=== PATIENT | male | born 1990 | race Hispanic/Latino ===

== ENCOUNTER 2017-01-30 07:14 | Day surgery (SDC) | payer MEDICARE, OTHER ==
[2017-01-23 08:37] VITALS: BMI 28.2
[2017-01-30] MEDS ORDERED: Lidocaine 2% w Epi 1:100,000 Inj IJ ONE (07:17)
[2017-01-30] MEDS ORDERED: Acetaminophen-Codeine 300/30 mg Tab PO PRN (08:31)
[2017-01-30] MEDS ORDERED: Dextrose 5%/0.45% NS 1,000 ML IV SCH (08:45)
[2017-01-30] MEDS ORDERED: Propofol 10 mg/ml Inj (20 ML) ONE (08:58)
[2017-01-30] MEDS ORDERED: Lactated Ringer's 1,000 ML IV ONE (09:00)
[2017-01-30] MEDS ORDERED: Midazolam 2 MG/2 ML VIAL ONE (09:00)
--- NOTE | 2017-01-30 14:53 | OP ---
PROCEDURE DATE: 01/30/2017 PREOPERATIVE DIAGNOSIS: Right Auricular cyst. POSTOPERATIVE DIAGNOSIS: Right Auricular cyst. PROCEDURE: Right Auricular cyst removal. SIGNIFICANT FINDINGS: Right Auricular cyst. DESCRIPTION OF PROCEDURE: The patient was brought in the room, placed in supine position. Anesthesi a was initiated through LMA. The patient was prepped and draped in the usual manner. The cyst was m arked with marking pen. Lidocaine with epi was injected. Dissections were done using a knife, and t he cyst was removed. Bleeding was controlled using pressure and cautery. At that point, the patient was taken off anesthesia and taken to recovery room in stable manner. Jak Jacques MD cc: [id number] TT: 01/30/2017 12:19:07 jn 01/30/2017 13:52:13
[2017-01-31 15:53] VITALS: O2SAT 100
[2017-01-31 15:58] VITALS: BP 117/60; PULSE 80; RESP 18; TEMP 97.3
== END 2017-01-30 12:06 | disposition home or self-care (01) ==
LOC: C.SDS 07:14
PROVIDERS: ATTEND Otolaryngology
DX: L72.0 Epidermal cyst (principal)
CPT/HCPCS: 11441; 88304; J2250; J2704; J3010; J7120

== ENCOUNTER 2018-01-04 09:09 | Day surgery (SDC) | payer MEDICARE, OTHER ==
[2017-01-23 08:37] VITALS: BMI 28.2
[~2018-01-04 09:09] MED LIST: Dextrose 5%/0.45% NS 1,000 ML IV SCH; Methylene Blue 10 mg/mL(10ml) IV ONE; Morphine 10 mg/5 ml Oral Soln PO PRN
[2018-01-04] MEDS: Lidocaine/Epinephrine 1% 1:100000 10 ML IJ ONE ×2 (10:46→11:32)
[2018-01-04] MEDS ORDERED: ceFAZolin 1 gm in NS 0 GM/0 ML BAG IVPB ONE (10:47)
[2018-01-04] MEDS ORDERED: Propofol 10 mg/ml Inj (20 ML) ONE (11:10)
[2018-01-04] MEDS ORDERED: Clindamycin 600mg/50ml NS 0 MG/0 ML BAG IVPB ONE (11:26)
[2018-01-04] MEDS ORDERED: Atropine 0.4 mg/ml Inj (1 mL) ONE (11:38)
[2018-01-04 13:12] VITALS: BP 122/73; PULSE 70; RESP 18; TEMP 97; O2SAT 100
[2018-01-04] MEDS ORDERED: ePHEDrine 50 mg/ml Inj ONE (15:23)
--- NOTE | 2018-01-04 21:19 | OP ---
PROCEDURE DATE: 01/04/2018 PREOPERATIVE DIAGNOSIS: Auricular cyst, left. POSTOPERATIVE DIAGNOSIS: Auricular cyst, left. PROCEDURE: Left auricular cyst removal. SIGNIFICANT FINDING: Left auricular cyst. DESCRIPTION OF PROCEDURE: The patient was brought into the room, placed in supine position. Anesthesia was initiated through facemask. The head was turned. The left ear was prepped and draped in the usual sterile manner. An incision was made around the cyst. Sharp dissection was done around it and it was removed. Bleeding was controlled using cautery and pressure. The patient was taken off anesthesia and taken to recovery room in stable manner. Jak Jacques MD
== END 2018-01-04 14:40 | disposition home or self-care (01) ==
LOC: C.SDS 09:09
PROVIDERS: ATTEND Otolaryngology
DX: D23.22 Other benign neoplasm of skin of left ear and external auricular canal (principal); F84.0 Autistic disorder; Z88.0 Allergy status to penicillin
CPT/HCPCS: 11440; 88304; J1100; J2405; J2704; J3010